=== PATIENT | female | born 1975 | race Hispanic/Latino ===

== ENCOUNTER 2022-05-16 19:39 | Emergency (ER) | payer OTHER, MEDICAID ==
[~2022-05-16] VITALS: Ht 165.1 cm; Wt 80.7 kg
[2022-05-16] MEDS ORDERED: SOLU-MEDROL 125MG VIAL ONE (19:47)
[2022-05-16] MEDS ORDERED: FAMOTIDINE 20MG VIAL IV ONE ×2 (19:47→20:00)
[2022-05-16] MEDS ORDERED: SOLU-MEDROL 125MG VIAL IM ONE (20:00)
[2022-05-16 20:41] LABS: BASOPHILS % (AUTO) 0.2 % (0.0-5.0); EOSINOPHILS % (AUTO) 0.2 % (0.0-8.0); HEMATOCRIT 43.8 % (36-48); LYMPHOCYTES % (AUTO) 24.8 % (21.0-51.0); MEAN CORPUSCULAR HEMOGLOBIN 27.7 pg (27.0-33.0); MEAN CORPUSCULAR HGB CONC 33.3 g/dL (32.0-36.0); MEAN CORPUSCULAR VOLUME 83.1 fL (79-99); MONOCYTES % (AUTO) 6.2 % (3.0-13.0); NEUTROPHILS % (AUTO) 68.3 % (40.0-77.0); PLATELET COUNT (AUTO) 288 K/uL (130-400); RED BLOOD CELL COUNT(AUTO) 5.27 MIL/uL (4.00-5.50); RED CELL DISTRIBUTION WIDTH 13.1 % (11.0-15.5); WHITE BLOOD COUNT (AUTO) 9.3 K/uL (4.8-10.8)
[2022-05-16 20:48] VITALS: BP 127/52
[2022-05-16 20:48] LABS: POTASSIUM 3.8 mmol/L (3.5-5.1)
[2022-05-16] MEDS ORDERED: PRED20TA3 PO (20:50)
[2022-05-16] MEDS ORDERED: DIPH50 PO (20:50)
[2022-05-16 20:52] LABS: ALBUMIN 3.8 g/dL (3.5-5.0); TOTAL PROTEIN, SERUM 7.7 g/dL (6.0-8.3)
[2022-05-16] MEDS ORDERED: EPIN0.3P2 IM (20:52)
[2022-05-16] MEDS ORDERED: FAMO-136 PO (20:52)
== END 2022-05-16 21:03 | disposition home or self-care (01) ==
LOC: EDH 19:39
DX: T78.2XXA Anaphylactic shock, unspecified, initial encounter (principal); Z88.1 Allergy status to other antibiotic agents; Z88.8 Allergy status to other drugs, medicaments and biological substances; Z88.6 Allergy status to analgesic agent; Z98.890 Other specified postprocedural states
CPT/HCPCS: 99284; 96374; 84484; 80053; 84703; 85025; 36415; 93005; 96372; J3490; J2930

== ENCOUNTER 2023-05-11 14:36 | Emergency (ER) | payer BC, OTHER ==
[~2023-05-11] VITALS: Ht 165.1 cm; Wt 84.4 kg
[~2023-05-11 14:36] MED LIST: DIPH50 PO; EPIN0.3P2 IM; FAMO-136 PO; PRED20TA3 PO
[2023-05-11 17:20] LABS: BASOPHILS # (AUTO) 0.02 K/uL (0.00-0.20); BASOPHILS % (AUTO) 0.4 % (0.0-5.0); EOSINOPHILS # (AUTO) 0.05 K/uL (0.00-0.70); EOSINOPHILS % (AUTO) 0.9 % (0.0-8.0); HEMATOCRIT 42.3 % (36-48); IMMATURE GRANULOCYTE ABSOLUTE 0.01 K/uL (0-1); LYMPHOCYTES # (AUTO) 2.8 K/uL (1.0-4.8); LYMPHOCYTES % (AUTO) 49.3 % (21.0-51.0); MEAN CORPUSCULAR HEMOGLOBIN 27.8 pg (27.0-33.0); MEAN CORPUSCULAR HGB CONC 33.3 g/dL (32.0-36.0); MEAN CORPUSCULAR VOLUME 83.4 fL (79-99); MONOCYTES # (AUTO) 0.5 K/uL (0.1-1.0); MONOCYTES % (AUTO) 8.8 % (3.0-13.0); NEUTROPHILS # (AUTO) 2.3 K/uL (1.8-7.7); NEUTROPHILS % (AUTO) 40.4 % (40.0-77.0); PLATELET COUNT (AUTO) 262 K/uL (130-400); RED BLOOD CELL COUNT(AUTO) 5.07 MIL/uL (4.00-5.50); RED CELL DISTRIBUTION WIDTH 13.3 % (11.0-15.5); WHITE BLOOD COUNT (AUTO) 5.7 K/uL (4.8-10.8)
[2023-05-11 17:21] LABS: APPEARANCE,URINE CLOUDY (CLEAR); BILIRUBIN,URINE NEGATIVE (NEGATIVE); COLOR,URINE YELLOW (YELLOW); GLUCOSE, URINE (UA) NEGATIVE (NEGATIVE); KETONES,URINE NEGATIVE (NEGATIVE); LEUKOCYTE ESTERASE ,URINE 500 Leu/uL (NEGATIVE); NITRATE,URINE NEGATIVE (NEGATIVE); OCCULT BLOOD,URINE NEGATIVE (NEGATIVE); PROTEIN,URINE 30 mg/dL (NEGATIVE); UROBILINOGEN,URINE 0.2 mg/dL (0.2-1.0)
[2023-05-11 17:25] LABS: CREATININE 0.7 mg/dL (0.5-1.5); POTASSIUM 3.7 mmol/L (3.5-5.1)
[2023-05-11 17:29] LABS: ADD UA MICROSCOPIC YES
[2023-05-11 17:30] LABS: ALBUMIN 3.8 g/dL (3.5-5.0); BILIRUBIN,TOTAL 0.6 mg/dL (0.2-1.0); TOTAL PROTEIN, SERUM 7.9 g/dL (6.0-8.3)
[2023-05-11] MEDS ORDERED: DEXAMETHASONE SOD PHOSPHATE 4 MG/ML 1ML VIAL IV ONE (17:30)
[2023-05-11] MEDS ORDERED: DIAZEPAM 5 MG/ML 2 ML SYG IVP ONE (17:30)
[2023-05-11] MEDS ORDERED: 0.9%NACL 1000ML 570 ML IV ONE (17:30)
[2023-05-11 17:32] LABS: BACTERIA,URINE FEW /HPF (None Seen); MUCUS,URINE FEW LPF (None Seen); SQUAMOUS EPITHELIAL CELL,UR MOD /HPF (0-2); UNCLASSIFIED CRYSTAL 2 /HPF (None Seen); YEAST,URINE HYPHAE RARE /HPF (None Seen)
[2023-05-11] MEDS ORDERED: CYCL10TA16 PO (18:20)
[2023-05-11] MEDS ORDERED: MELO-106 PO (18:20)
[2023-05-11] MEDS ORDERED: MACR100 PO (18:20)
[2023-05-11] MEDS ORDERED: NITROFURANTOIN MONOHYD/M-CRYST 100 MG CAPSULE PO ONE (18:30)
[2023-05-11 18:57] VITALS: BP 131/69; PULSE 74; RESP 16; O2SAT 99
== END 2023-05-11 19:56 | disposition home or self-care (01) ==
LOC: EDH 14:36
DX: R07.89 Other chest pain (principal); N39.0 Urinary tract infection, site not specified; M62.830 Muscle spasm of back; Z79.899 Other long term (current) drug therapy; Z98.890 Other specified postprocedural states; Z88.0 Allergy status to penicillin; Z88.6 Allergy status to analgesic agent; Z91.030 Bee allergy status; Z88.8 Allergy status to other drugs, medicaments and biological substances
CPT/HCPCS: 99284; 96374; 96375; 87426; 82550; 84484; 80053; 85025; 87088; 81001; 36415; 93005; J1100; J7030; J3360